=== PATIENT | female | born 1990 | race Hispanic/Latino ===

== ENCOUNTER 2019-08-15 22:14 | Observation (INO) ==
[2019-08-15] MEDS ORDERED: ONDANSETRON 4 MG/2 ML VIAL IV ONE (22:30)
[2019-08-15] MEDS ORDERED: LACTATED RINGERS 1,000 ML IV ONE (22:30)
[2019-08-15] MEDS: HYDROmorphone* 2 MG/ML VIAL IV SCH (22:56)
[2019-08-15] MEDS ORDERED: KETOROLAC 30 MG/ML VIAL IV ONE (22:57)
[2019-08-15 23:35] LABS: Basophils # (Auto) 0.06 K/mcL (0.00-0.30); Basophils % (Auto) 0.5 % (0.0-2.0); Eosinophils # (Auto) 0.08 K/mcL (0.00-0.70); Eosinophils % (Auto) 0.6 % (0.0-7.0); Granulocytes % (Auto) 75.2 % (38.0-78.0); Hematocrit 38.3 % (34.1-44.9); Hemoglobin 13.6 g/dL (11.2-15.7); Lymphocytes # (Auto) 2.25 K/mcL (1.50-4.80); Lymphocytes % (Auto) 18.2 % (15.5-49.0); Mean Cell Volume 91.6 fL (80.0-100.0); Mean Corpuscular HGB Conc 35.5 g/dL (31.0-36.0); Mean Platelet Volume 9.7 fL (7.4-10.4); Monocytes # (Auto) 0.68 K/mcL (0.10-0.90); Monocytes % (Auto) 5.5 % (1.0-12.0); Platelet Count 363 K/mcL (140-440); RBC 4.18 M/mcL (3.59-5.38); Red Cell Distribution Width 11.6 % (11.5-14.5); WBC 12.4 K/mcL (4.50-11.00)
[2019-08-15] MEDS ORDERED: METOCLOPRAMIDE 10 MG/2 ML VIAL IV ONE (23:44)
[2019-08-15 23:51] LABS: ALT/SGPT 89 U/l (0-40); AST/SGOT 52 U/l (0-37); Albumin 4.3 gm/dL (3.2-5.2); Albumin/Globulin Ratio 1.4 (1.0-2.3); Alkaline Phosphatase 72 U/L (39-117); Bilirubin,Total 0.3 mg/dL (0.0-1.0); Blood Urea Nitrogen 16 mg/dl (6-20); Calcium 9.1 mg/dl (8.6-10.4); Carbon Dioxide 24 mmol/L (22-30); Chloride 102 mmol/L (96-108); Globulin 3.1 gm/dL (2.2-3.7); Glomerular Filtration Rate 101; Glucose 89 mg/dL (70-105)
[2019-08-15] MEDS ORDERED: LEVOFLOXACIN 750 MG/150 ML BAG IV ONE (23:51)
[2019-08-15] MEDS ORDERED: metroNIDAZOLE 500 MG/100 ML BAG IV ONE (23:51)
[2019-08-15] MEDS ORDERED: PROMETHAZINE 25 MG/ML VIAL IM PRN (23:53)
[2019-08-16] MEDS ORDERED: HYDROmorphone* 2 MG/ML VIAL IV PRN (00:02)
[2019-08-16 00:14] LABS: Appearance,Urine CLEAR; Bacteria,Urine 0 /hpf (0); Bilirubin,Urine NEG (NEG); Color,Urine STRAW; Culture Indicated,Urine NO; Glucose,Urine (UA) NEGATIVE (NEG); Ketones,Urine NEG (NEG); Leukocyte Esterase,Urine NEG /uL (NEG); Mucus,Urine FEW /hpf (0); Nitrate,Urine NEG (NEG); Protein,Urine NEG (NEG); Specific Gravity,Urine 1.053 (1.000-1.035); Urine Blood NEG mg/dL (<0.03); Urine RBC 1 /hpf (0-1); Urine Squamous Epithelial Cell < 1 /hpf (0-4); Urine WBC < 1 /hpf (0-4); Urobilinogen,Urine NEG (NEG)
[2019-08-16] MEDS ORDERED: IOPAMIDOL 100 ML BOTTLE IV ONE (00:48)
[2019-08-16] MEDS ORDERED: PROMETHAZINE 25 MG/ML VIAL IV PRN (02:10)
[2019-08-16] MEDS ORDERED: ONDANSETRON 4 MG/2 ML VIAL IV PRN (02:11)
[2019-08-16] MEDS: 0.9 % SODIUM CHLORIDE 1,000 ML IV SCH ×3 (02:23→18:03)
[2019-08-16] MEDS ORDERED: ONDANSETRON 4 MG/2 ML VIAL ONE (02:29)
[2019-08-16] MEDS: ACETAMINOPHEN 1,000 MG/100 ML BOTTLE IV PRN ×2 (03:44→23:57)
[2019-08-16] MEDS ORDERED: ACETAMINOPHEN 1,000 MG/100 ML BOTTLE IV ONE ×2 (03:45→15:41)
[2019-08-16] MEDS ORDERED: metroNIDAZOLE 500 MG/100 ML BAG IV ONE (05:36)
[2019-08-16] MEDS: metroNIDAZOLE 500 MG/100 ML BAG IV SCH ×4 (05:37→23:37)
[2019-08-16] MEDS ORDERED: SCOPOLAMINE 1 PATCH PATCH TOPICAL PRN (06:00)
[2019-08-16] MEDS ORDERED: IPRATROPIUM/ALBUTEROL 3 ML AMPUL.NEB NEB PRN ×2 (06:00→15:41)
--- NOTE | 2019-08-16 06:33 | Cat Scan Report ---
INDICATION: Right lower quadrant pain COMPARISON: None. TECHNIQUE: Axial images were obtained through the abdomen and pelvis. Sagittally and coronally reformatted images. 80 mL Isovue 370 injected intravenously. Oral contrast material was not administered. FINDINGS: Lung bases:Negative. No pulmonary parenchymal nodule. No pleural fluid or pericardial fluid Liver: Diffusely low density liver consistent with hepatic steatosis. No focal intrahepatic mass. No focal abnormality. Liver contour is smooth. No evidence for cirrhosis Gallbladder, billary:Surgical clips in the gallbladder fossa. No dilated bile ducts. Spleen:No splenomegaly. Normal enhancement of splenic and portal veins. Pancreas:No pancreatic mass. No peripancreatic abnormality Adrenal glands:Negative Kidneys, ureters, bladder:No solid or cystic renal mass. No hydronephrosis. No obstructing calculi. There is no hydroureter. No ureteral stone No bladder calculi or detectable mass Gastrointestinal:The appendix measures 8 mm. Appendiceal wall is mildly thickened and enhancing. There is minimal periappendiceal laboratory change. Appearance is consistent with appendicitis. No perforation. No free fluid or abscess. There is no appendicolith. Colon is otherwise negative. There is no diverticulitis. No detectable colonic mass. Small bowel, duodenum, stomach are negative. Vascular:Negative abdominal aorta. Superior mesenteric artery and celiac trunk are normal. Normal opacification of the inferior mesenteric artery Lymphatic:No retroperitoneal or mesenteric adenopathy Mesentery, peritoneum: No free intraperitoneal fluid. No mesenteric or retroperitoneal mass. No intra-abdominal abscess. Reproductive:Uterus is anteflexed. No adnexal mass Musculoskeletal:No lumbar compression fractures. Sacrum and pelvis are negative. No hip fracture. Examination was initially interpreted by [facility] IMPRESSION: 1. Abnormal appendix consistent with mild appendicitis. No free fluid or evidence for rupture 2. Hepatic steatosis The exam was performed using radiation dose optimization techniques including, but not limited to, automated exposure control, adjustment of the mA and/or kV according to patient size and use of iterative reconstruction technique. Interpreted and Authenticated by: Raoul Landers 08/16/19
[2019-08-16 06:56] LABS: Basophils # (Auto) 0.03 K/mcL (0.00-0.30); Basophils % (Auto) 0.4 % (0.0-2.0); Eosinophils # (Auto) 0.01 K/mcL (0.00-0.70); Eosinophils % (Auto) 0.1 % (0.0-7.0); Granulocytes % (Auto) 83.1 % (38.0-78.0); Hematocrit 36.8 % (34.1-44.9); Hemoglobin 12.7 g/dL (11.2-15.7); Lymphocytes # (Auto) 1.01 K/mcL (1.50-4.80); Lymphocytes % (Auto) 11.9 % (15.5-49.0); Mean Cell Volume 92.5 fL (80.0-100.0); Mean Corpuscular HGB Conc 34.5 g/dL (31.0-36.0); Mean Platelet Volume 9.8 fL (7.4-10.4); Monocytes # (Auto) 0.38 K/mcL (0.10-0.90); Monocytes % (Auto) 4.5 % (1.0-12.0); Platelet Count 323 K/mcL (140-440); RBC 3.98 M/mcL (3.59-5.38); Red Cell Distribution Width 11.5 % (11.5-14.5); WBC 8.5 K/mcL (4.50-11.00)
[2019-08-16 07:08] LABS: Blood Urea Nitrogen 15 mg/dl (6-20); Calcium 8.8 mg/dl (8.6-10.4); Carbon Dioxide 23 mmol/L (22-30); Chloride 102 mmol/L (96-108); Glomerular Filtration Rate 101; Glucose 96 mg/dL (70-105)
--- NOTE | 2019-08-16 07:46 | Emergency Department Note ---
Abdominal Pain HPI - General Chief Complaint: Abdominal Pain Stated Complaint: abdominal pain Time Seen by Provider: 08/15/19 22:27 Source: patient Mode of arrival: ambulatory Limitations: no limitations - History of Present Illness HPI Narrative: This patient began having right lower quadrant pain this morning about 10 AM. Initially started more diffusely and then localized to the right lower quadrant. Has had slight nausea and slight diarrhea. - Related Data Home Medications Medication Instructions Recorded Confirmed No Known Home Meds 08/16/19 08/16/19 Allergies Allergy/AdvReac Type Severity Reaction Status Date / Time Amoxicillin Allergy Hives Verified 08/15/19 22:15 ceftriaxone [From Rocephin] Allergy Hives Verified 08/15/19 22:15 Penicillins Allergy Hives Verified 08/15/19 22:15 Review of Systems All systems ED: reviewed and negative except as stated. Abdominal Pain PMH - Past Medical History Surgical history ED: Reports: cholecystectomy - Social History Smoking status: Never smoker Physical Exam Limitations: no limitations General appearance: alert Head: atraumatic Eye: Present: normal appearance ENT: Present: normal exam Neck: Present: normal inspection Chest: Present: normal inspection Respiratory: Present: normal lung sounds bilaterally Cardiovascular: Present: regular rate, normal rhythm, normal heart sounds Abdominal: Present: soft, tenderness, diminished bowel sounds. Absent: distention, guarding, rebound, rigidity Abdominal tenderness: Present: RLQ, moderate Neurological: Present: alert Psychiatric: Present: normal affect Skin: Present: warm, dry Course Vital Signs Temperature 98.2 F 08/15/19 22:16 Pulse Rate 70 08/15/19 22:16 Respiratory Rate 18 08/15/19 22:16 Blood Pressure 135/76 08/15/19 22:16 Pulse Oximetry (%) 98 08/15/19 22:16 Temperature 97.5 F 08/16/19 07:38 Pulse Rate 71 08/16/19 04:00 Respiratory Rate 20 08/16/19 07:38 Blood Pressure 114/62 08/16/19 07:38 Pulse Oximetry (%) 100 08/16/19 07:38 Abdominal Pain - MDM Narrative Medical decision making narrative: CT scan was consistent with early appendicitis. I discussed the case with Dr. Vargas the surgeon and admitted her to the hospital for him. - Lab Data Lab results reviewed: Yes I reviewed the patient's lab results. Result diagrams: 08/16/19 05:45 08/16/19 05:45 Lab Results 08/15/19 08/15/19 08/15/19 Range/Units 22:40 22:40 23:34 WBC 12.4 H (4.50-11.00) K/mcL RBC 4.18 (3.59-5.38) M/mcL Hgb 13.6 (11.2-15.7) g/dL Hct 38.3 (34.1-44.9) % MCV 91.6 (80.0-100.0) fL MCH 32.5 (26.0-34.0) pg MCHC 35.5 (31.0-36.0) g/dL RDW 11.6 (11.5-14.5) % Plt Count 363 (140-440) K/mcL MPV 9.7 (7.4-10.4) fL Gran % 75.2 (38.0-78.0) % Lymph % (Auto) 18.2 (15.5-49.0) % [place] % (Auto) 5.5 (1.0-12.0) % Eos % (Auto) 0.6 (0.0-7.0) % Baso % (Auto) 0.5 (0.0-2.0) % Gran # 9.28 H (1.80-8.00) K/mcL Lymph # (Auto) 2.25 (1.50-4.80) K/mcL [place] # (Auto) 0.68 (0.10-0.90) K/mcL Eos # (Auto) 0.08 (0.00-0.70) K/mcL Baso # (Auto) 0.06 (0.00-0.30) K/mcL Sodium 138 (133-145) mmol/L Potassium 3.6 (3.3-5.1) mmol/L Chloride 102 (96-108) mmol/L Carbon Dioxide 24 (22-30) mmol/L Anion Gap 12.0 (8-16) BUN 16 (6-20) mg/dl Creatinine 0.8 (0.6-1.1) mg/dl GFR Calculation 101 Glucose 89 (70-105) mg/dL Calcium 9.1 (8.6-10.4) mg/dl Total Bilirubin 0.3 (0.0-1.0) mg/dL AST 52 H (0-37) U/l ALT 89 H (0-40) U/l Alkaline Phosphatase 72 (39-117) U/L Total Protein 7.4 (5.9-8.4) gm/dL Albumin 4.3 (3.2-5.2) gm/dL Globulin 3.1 (2.2-3.7) gm/dL Albumin/Globulin Ratio 1.4 (1.0-2.3) Lipase 14 (7-60) U/L Urine Color Straw Urine Appearance Clear Urine pH 7.0 (5.0-9.0) Ur Specific [place] 1.053 H (1.000-1.035) Urine Protein Neg (NEG) mg/dL Urine Glucose (UA) Negative (NEG) mg/dL Urine Ketones Neg (NEG) mg/dL Urine Occult Blood Neg (<0.03) mg/dL Urine Nitrate Neg (NEG) Urine Bilirubin Neg (NEG) mg/dL Urine Urobilinogen Neg (NEG) mg/dL Ur Leukocyte Esterase Neg (NEG) /uL Urine RBC 1 (0-1) /hpf Urine WBC < 1 (0-4) /hpf Ur Squamous Epith Cells < 1 (0-4) /hpf Urine Bacteria 0 (0) /hpf Urine Mucus Few (0) /hpf Ur Culture Indicated? No - Radiology Data Radiology results reviewed: Yes I reviewed the patient's radiology results. Disposition Pt seen by MANAGER LABORATORY/PA only: No Clinical Impression: Acute appendicitis Disposition: Xfer As Inpt ([facility]) Condition: Good
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
[2019-08-16] MEDS ORDERED: METOPROLOL TARTRATE 5 MG/5 ML VIAL IV PRN (15:41)
[2019-08-16] MEDS ORDERED: fentaNYL 100 MCG/2 ML VIAL IV PRN (15:41)
[2019-08-16] MEDS ORDERED: NALOXONE HCL 0.4 MG/ML VIAL IV PRN (15:41)
[2019-08-16] MEDS ORDERED: FLUMAZENIL 0.1 MG/ML ML IV PRN (15:41)
[2019-08-16] MEDS ORDERED: METHOCARBAMOL 1,000 MG/10 ML VIAL IV PRN (15:41)
[2019-08-16] MEDS ORDERED: PROMETHAZINE 25 MG/ML VIAL IM PRN (15:41)
[2019-08-16] MEDS ORDERED: LABETALOL 5 MG/ML ML IV PRN (15:41)
[2019-08-16] MEDS ORDERED: LACTATED RINGERS 250 ML IV PRN (15:41)
[2019-08-16] MEDS ORDERED: BENZOCAINE/MENTHOL 1 LOZENGE PO PRN (15:41)
[2019-08-16] MEDS ORDERED: MEPERIDINE 25 MG/ML SYRINGE IV PRN (15:41)
[2019-08-16] MEDS ORDERED: MEPERIDINE 50 MG/ML INJECTION IM PRN (15:41)
[2019-08-16] MEDS ORDERED: LACTATED RINGERS 1,000 ML IV SCH (15:45)
[2019-08-16] MEDS: LEVOFLOXACIN 750 MG/150 ML BAG IV SCH (15:54)
[2019-08-16] MEDS ORDERED: fentaNYL 250 MCG/5 ML VIAL IV ONE (16:00)
[2019-08-16] MEDS ORDERED: LIDOCAINE HCL/PF 100 MG/5 ML SYRINGE IV ONE (16:00)
[2019-08-16] MEDS ORDERED: SUCCINYLCHOLINE 20 MG/ML ML IV ONE (16:00)
[2019-08-16] MEDS ORDERED: PROPOFOL 200 MG/20 ML VIAL IV ONE (16:00)
[2019-08-16] MEDS ORDERED: ONDANSETRON 4 MG/2 ML VIAL IV ONE (16:00)
[2019-08-16] MEDS ORDERED: KETAMINE 100 MG/ML ML IV ONE (16:00)
[2019-08-16] MEDS ORDERED: GLYCOPYRROLATE 0.2 MG/ML VIAL IV ONE (16:00)
[2019-08-16] MEDS ORDERED: DEXAMETHASONE 10 MG/ML VIAL IV ONE (16:00)
[2019-08-16] MEDS ORDERED: diphenhydrAMINE 50 MG/ML VIAL IV ONE (16:00)
[2019-08-16] MEDS ORDERED: ROCURONIUM 10 MG/ML ML IV ONE (16:00)
[2019-08-16] MEDS ORDERED: MIDAZOLAM 5 MG/5 ML VIAL IV ONE (16:00)
--- NOTE | 2019-08-16 16:54 | Brief Operative Note ---
Date of procedure: 08/16/19 Pre-op diagnosis: acute appendicitis Post-op diagnosis: other (acute appendicitis) Procedure: laparoscopic appendectomy Grafts/Implants: No Anesthesia: GETA Findings: acute suppurative appendicitis Complications: none Surgeon: Ike Vargas Estimated blood loss (cc): 20 Specimens Removed/Pathology: other (appendix) Condition: stable Disposition: PACU
[2019-08-16] MEDS: HYDROmorphone* 2 MG/ML VIAL IV PRN (20:19)
[2019-08-16] MEDS: HYDROmorphone* 2 MG/ML VIAL IV SCH (22:32)
[2019-08-17] MEDS: 0.9 % SODIUM CHLORIDE 1,000 ML IV SCH ×4 (00:40→11:55)
[2019-08-17] MEDS: metroNIDAZOLE 500 MG/100 ML BAG IV SCH ×2 (05:49→13:14)
[2019-08-17 09:41] LABS: Basophils # (Auto) 0.01 K/mcL (0.00-0.30); Basophils % (Auto) 0.1 % (0.0-2.0); Eosinophils # (Auto) 0 K/mcL (0.00-0.70); Eosinophils % (Auto) 0 % (0.0-7.0); Granulocytes % (Auto) 85.5 % (38.0-78.0); Hemoglobin 13.1 g/dL (11.2-15.7); Lymphocytes # (Auto) 1.13 K/mcL (1.50-4.80); Lymphocytes % (Auto) 11.7 % (15.5-49.0); Mean Cell Volume 93.1 fL (80.0-100.0); Mean Corpuscular HGB Conc 34.5 g/dL (31.0-36.0); Mean Platelet Volume 9.9 fL (7.4-10.4); Monocytes # (Auto) 0.26 K/mcL (0.10-0.90); Monocytes % (Auto) 2.7 % (1.0-12.0); Platelet Count 336 K/mcL (140-440); RBC 4.08 M/mcL (3.59-5.38); Red Cell Distribution Width 11.6 % (11.5-14.5); WBC 9.6 K/mcL (4.50-11.00)
[2019-08-17] MEDS: HYDROmorphone* 2 MG/ML VIAL IV PRN (10:14)
[2019-08-17] MEDS: LEVOFLOXACIN 750 MG/150 ML BAG IV SCH (10:15)
--- NOTE | 2019-08-17 12:31 | Discharge Summary ---
Providers - Providers Patient information: Note initiated : 08/17/19 at 12:30 pm Service Date, if different from initiated Date: [] Patient: Jonna Kimble 28 y/o F admitted on 08/16/19 for abdominal pain. Chief Complaint: [] Date of admission: 08/16/19 Discharge date: 08/17/19 Attending physician: Ike Vargas Hospitalization Hospital Course: 28-year-old female presented with a 24-hour history of right flank and right lower quadrant pain with associated nausea. She was seen in the emergency room where she was noted to have tenderness in her right quadrant and elevated white blood. CT of the abdomen was compatible with acute appendicitis. She underwent laparoscopic appendectomy yesterday. She was found to have acute suppurative appendicitis. She has done well in the postoperative period. Her white blood count is down to 9.6. She is tolerating full liquid diet without difficulty. She has had flatus but no bowel movement. Patient is stable for discharge home. Discharge diagnosis: acute appendicitis Reason for admission: . Recurrent abdominal pain with nausea Procedures: Laparoscopic appendectomy Pertinent studies/significant findings: CT of abdomen and pelvis with contrast Complications: None Exam Temp Pulse Resp BP Pulse Ox 98.3 F 57 L 12 110/62 98 08/17/19 11:26 08/17/19 02:47 08/17/19 11:26 08/17/19 11:26 08/17/19 11:26 - General physical appearance well developed, well nourished, no distress - Eyes PERRL, normal ocular movement - ENT normal pinna, normal nares, normal mucosa, no hearing loss, no congestion - Head Head exam IM: Present: atraumatic, normocephalic - Neck no masses, no bruits, trachea midline, no lymphadenopathy, no venous distension - Cardiovascular Cardiovascular exam IM: Present: normal rate and rhythm - Respiratory normal expansion, normal respiratory effort, clear to auscultation - Abdomen Abdomen: Present: soft, tender (mild tenderness around port sites; nondistended; good active bowel sounds), bowel sounds Hernia: Present: none - Genitourinary Present: normal external genitalia - Integumentary Present: no rash, no growths, no abnormal pigmentation - Neurologic Present: normal coordination, normal sensation - Musculoskeletal Present: normal gait, normal posture - Psychiatric Present: oriented to time, oriented to person, oriented to place, speech is normal, memory intact Discharge Plan - Patient/Caregiver Discharge Instructions Activity: increase activity as tolerated Diet: Regular Diet Prescriptions: oxyCODONE/APAP [Percocet 5-325 mg] 1 tab PO Q4HP PRN #40 tab PRN Reason: Pain Transmission Status: Sent to [facility] - Follow up Plan Follow up with: Ike Vargas MD [Physician] - 08/25/19 Disposition: Home, Self-Care Prognosis: Good Rehab Potential: Good I certify that the patient requires SNF services.: No Overall status at discharge: patient is progressing back to baseline Pending Studies Resuscitation Status Full Code Diet Full Liquid Diet Start Sat Aug 15 2028 Hydromorphone HCl (Dilaudid) 1 mg IV ONCE SHEREE; Protocol Last Admin: 08/16/19 22:32 Dose: Not Given Documented by: Admin: 08/15/19 22:56 Dose: 1 mg Documented by: BONG Hydromorphone HCl (Dilaudid) 1 mg IV Q2HP PRN; Protocol PRN Reason: Per Pain Protocol Last Admin: 08/17/19 10:14 Dose: 1 mg Documented by: Admin: 08/16/19 20:19 Dose: 1 mg Documented by: CYDNEY Levofloxacin (Levaquin) 750 mg in 150 mls @ 100 mls/hr IV Q24H SHEREE Last Admin: 08/17/19 10:15 Dose: 100 mls/hr Documented by: Infusion: 08/17/19 09:57 Dose: 0 mls/hr Documented by: Admin: 08/16/19 15:54 Dose: 100 mls/hr Documented by: AURY Metronidazole (Flagyl) 500 mg in 100 mls @ 100 mls/hr IV Q6H SHEREE; Protocol Last Infusion: 08/17/19 06:49 Dose: 0 mls/hr Documented by: Admin: 08/17/19 05:49 Dose: 100 mls/hr Documented by: Infusion: 08/17/19 00:37 Dose: 100 mls/hr Documented by: Admin: 08/16/19 23:37 Dose: 100 mls/hr Documented by: Infusion: 08/16/19 19:05 Dose: 100 mls/hr Documented by: Admin: 08/16/19 18:05 Dose: 100 mls/hr Documented by: Infusion: 08/16/19 13:40 Dose: 100 mls/hr Documented by: Admin: 08/16/19 12:40 Dose: 100 mls/hr Documented by: Infusion: 08/16/19 06:40 Dose: 0 mls/hr Documented by: CatXElizabeth Admin: 08/16/19 05:37 Dose: 100 mls/hr Documented by: EVERETTETOJO ANN Sodium Chloride (Sodium Chloride 0.9%) 1,000 mls @ 150 mls/hr IV .Q6H40M SHEREE Last Admin: 08/17/19 11:55 Dose: 150 mls/hr Documented by: Infusion: 08/17/19 09:58 Dose: 0 mls/hr Documented by: Admin: 08/17/19 04:55 Dose: Not Given Documented by: Admin: 08/17/19 02:48 Dose: 150 mls/hr Documented by: Infusion: 08/17/19 00:44 Dose: 150 mls/hr Documented by: Admin: 08/17/19 00:40 Dose: Not Given Documented by: Admin: 08/16/19 18:03 Dose: 150 mls/hr Documented by: Infusion: 08/16/19 17:44 Dose: 150 mls/hr Documented by: Admin: 08/16/19 11:03 Dose: 150 mls/hr Documented by: CatXElizabeth Infusion: 08/16/19 11:00 Dose: 0 mls/hr Documented by: CatXElizabeth Admin: 08/16/19 02:23 Dose: 150 mls/hr Documented by: HIMANSHU Acetaminophen (Ofirmev) 1,000 mg in 100 mls @ 200 mls/hr IV Q6HP PRN; Protocol PRN Reason: Per Pain Protocol Last Infusion: 08/17/19 00:40 Dose: 0 mls/hr Documented by: Admin: 08/16/19 23:57 Dose: 200 mls/hr Documented by: Infusion: 08/16/19 04:46 Dose: 0 mls/hr Documented by: Admin: 08/16/19 03:44 Dose: 200 mls/hr Documented by: HIMANSHU Ondansetron HCl (Zofran) 4 mg IV Q4HP PRN PRN Reason: Nausea And Vomiting Last Admin: 08/16/19 02:29 Dose: 4 mg Documented by: HIMANSHU Shift Summary 08/17/19 06:33 Shift Summary by Iwona Zhang Pt is A&Ox4. BP running low (90s/50s). Up w/SBA to BSC. Voiding well. 3 lap sites to abdomen w/vj & Tegaderm. No c/o nausea. Has not had much oral intake, however. Full Liquid diet ordered. Pt got Dilaudid 1 mg x1 & PRN Ofirmev x1 for pain. IV to left AC, SL. IV to LFA w/NS @ 150 ml/hr. Will update with verbal report. Initialized on 08/17/19 06:33 - END OF NOTE
--- NOTE | 2019-08-19 12:02 | Surgical Pathology Report ---
HISTOLOGY SPECIMEN MICROSCOPIC DIAGNOSIS APPENDIX, APPENDECTOMY: -- ACUTE APPENDICITIS WITH SEROSITIS. (DMT:adj) PROCEDURAL IMPRESSION Appendicitis. GROSS DESCRIPTION Received in formalin labeled appendix, is a ca-mendoza appendix that is 6.2 cm in length by up to 0.7 cm in diameter. The resection margin is stapled. This is inked black. There is an additional 2 cm staple margin within the fat. Cut surfaces are mendoza and a brown fecalith is present. Grossly there are no areas of perforation identified. Speed Reading Teacher sections submitted - one cassette. (SCB:sln) Electronically Signed by: James Brice M.D.
--- NOTE | 2019-09-02 11:01 | Operative Note ---
DATE OF OPERATION: 08/16/2019 PREOPERATIVE DIAGNOSIS: Acute appendicitis. POSTOPERATIVE DIAGNOSIS: Acute appendicitis. PROCEDURE: Laparoscopic appendectomy. SURGEON: Ike Vargas M.D. FINDINGS: Acute suppurative appendicitis. DESCRIPTION OF PROCEDURE: Under general anesthesia, the patient's abdomen was prepped and draped in the sterile field. Timeout procedure was carried out as per protocol. Supraumbilical incision was made and Veress needle was inserted. Abdomen was insufflated with 3 liters of CO2. A 12 mm port was placed. Laparoscope was placed. Under videoscopic guidance, a 5 mm port was placed in the suprapubic midline and a 12 mm port in the left lower quadrant. The patient was placed in deep Trendelenburg position and rotated to the left. At the base of the cecum, the acutely inflamed, suppurative appendix was noted. It was grasped at the base and using primarily blunt dissection was from the surrounding tissues. A window was made in the mesoappendix, and the base of the appendix and the mesoappendix was transected using the Endo VANIA stapler. There was some bleeding from the staple line, and this bleeding was controlled with multiple clips. Irrigation was carried out. The appendix was placed in an Endopouch and retrieved. Further irrigation was carried out. There was no further bleeding. No drain was needed. CO2 was allowed to escape from the abdomen and the ports were removed. The fascia at the umbilicus was closed with interrupted 0 Vicryl. Skin incisions were closed with vj. Tegaderm dressings were placed. The patient was awakened, transferred to a bed, and taken to the postanesthetic care unit in stable, satisfactory condition. LCS:lillie Job ID: [id number] Doc ID: [id number] Ike Vargas M.D.
== END 2019-08-17 13:50 | disposition home or self-care (01) ==
LOC: ED 22:14 → MEDSUR 22:14
PROVIDERS: ADMIT Family Medicine Adult Medicine; ATTEND Family Medicine Adult Medicine